=== PATIENT | male | born 1950 | race Caucasian/White ===

== ENCOUNTER → 2019-10-23 10:06 | Outpatient (BNVA) | payer MEDICARE, SELFPAY | PROVIDERS: Visit Provider Nurse Practitioner Family | DX: I10 Essential (primary) hypertension (principal); R60.0 Localized edema; Z12.5 Encounter for screening for malignant neoplasm of prostate; E03.9 Hypothyroidism, unspecified; E78.2 Mixed hyperlipidemia; F32.9 Major depressive disorder, single episode, unspecified; Z79.899 Other long term (current) drug therapy; M10.9 Gout, unspecified; F41.9 Anxiety disorder, unspecified | CPT/HCPCS: 80053; 80061; 81001; 83036; 84443; 84550; 85025; G0103 ==

== ENCOUNTER → 2020-05-25 11:09 | Outpatient (BNVA) | payer MEDICARE, MEDICAID, SELFPAY | PROVIDERS: Visit Provider Nurse Practitioner Family | DX: E78.2 Mixed hyperlipidemia (principal); I10 Essential (primary) hypertension; Z79.899 Other long term (current) drug therapy; E03.9 Hypothyroidism, unspecified; E55.9 Vitamin D deficiency, unspecified; M10.9 Gout, unspecified; M81.0 Age-related osteoporosis without current pathological fracture; J44.9 Chronic obstructive pulmonary disease, unspecified; F41.9 Anxiety disorder, unspecified; F32.9 Major depressive disorder, single episode, unspecified; R60.0 Localized edema | CPT/HCPCS: 80053; 80061; 81003; 82306; 83036; 84443; 84550; 85025 ==

== ENCOUNTER → 2021-02-03 10:51 | Outpatient (BNVA) | payer MEDICARE, MEDICAID, SELFPAY | PROVIDERS: PCP Nurse Practitioner Family; Visit Provider Nurse Practitioner Family | DX: Z12.5 Encounter for screening for malignant neoplasm of prostate (principal); Z79.899 Other long term (current) drug therapy; E55.9 Vitamin D deficiency, unspecified; I10 Essential (primary) hypertension; E03.9 Hypothyroidism, unspecified; E78.2 Mixed hyperlipidemia; R10.9 Unspecified abdominal pain | CPT/HCPCS: 74018; 80053; 80061; 81003; 82150; 82306; 83036; 83690; 84443; 84550; 85025; G0103 ==

== ENCOUNTER → 2021-11-02 08:47 | Outpatient (BNVA) | payer MEDICARE, MEDICAID, SELFPAY | PROVIDERS: PCP Nurse Practitioner Family; Visit Provider Nurse Practitioner | DX: Z12.5 Encounter for screening for malignant neoplasm of prostate (principal); I10 Essential (primary) hypertension; E03.9 Hypothyroidism, unspecified | CPT/HCPCS: 80053; 80061; 84443; 85025; G0103 ==

== ENCOUNTER → 2021-12-05 11:57 | Outpatient (BNVA) | payer MEDICARE, MEDICAID, SELFPAY | PROVIDERS: PCP Nurse Practitioner; Visit Provider Nurse Practitioner | DX: E87.5 Hyperkalemia (principal) | CPT/HCPCS: 80053 ==

== ENCOUNTER → 2023-04-08 09:54 | Outpatient (BNVA) | payer MEDICARE, MEDICAID, SELFPAY | PROVIDERS: PCP Nurse Practitioner; Visit Provider Nurse Practitioner Family | DX: F41.9 Anxiety disorder, unspecified (principal); F32.9 Major depressive disorder, single episode, unspecified; I10 Essential (primary) hypertension; E78.2 Mixed hyperlipidemia; E03.9 Hypothyroidism, unspecified; E55.9 Vitamin D deficiency, unspecified; M81.0 Age-related osteoporosis without current pathological fracture; Z12.5 Encounter for screening for malignant neoplasm of prostate; M10.9 Gout, unspecified; Z79.899 Other long term (current) drug therapy | CPT/HCPCS: 80053; 80061; 80164; 81003; 82306; 83036; 84443; 84550; 85025 ==

== ENCOUNTER 2023-05-28 12:57 | Emergency (ER) | payer MEDICARE, MEDICAID, SELFPAY ==
--- NOTE | 2023-05-28 13:02 | XR_ITS ---
WS: [id number] Exam: XR chest 1V portable [id number] Date/Time of Exam: 05/28/2023 1:04 PM Reason For Exam: syncope No priors. The lungs are clear and fully inflated. Normal cardiomediastinal silhouette. No pleural effusions. At least 2 old RIGHT rib fractures noted. Remaining bony structures are unremarkable. IMPRESSION: 1. No acute cardiopulmonary finding.
--- NOTE | 2023-05-28 13:03 | ECG_ITS ---
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 Measurements Intervals [place] Rate: 73 P: 65 OR: 203 QRS: 44 QRSD: 101 T: 54 QT: 386 QTc: 426 Interpretive Statements SINUS RHYTHM No previous ECG available for comparison Electronically Signed On 05-28-2023 16:02:23 WIRE [employer]ATING OPERATOR [employer] by El Sosa M.D. [id number]
[2023-05-28 13:06] VITALS: BMI 33.2
[2023-05-28 13:08] VITALS: BP 144/82; PULSE 72; RESP 16; TEMP 36.9; O2SAT 97
--- NOTE | 2023-05-28 13:23 | ED_ITS ---
HPI - Syncope 2 General: Chief Complaint: Syncope Stated Complaint: syncope Time Seen by Provider: 05/28/23 12:59 Source: patient and EMS Mode of arrival: EMS Limitations: no limitations History of Present Illness: 72-year-old male who states has a histor y of [place] seizures he states he has not been taking his Depakote he was riding in a car states he had felt tired he got out and either had a seizure or syncopal event. EMS was called he woke up with the ambulance and states he feels at his baseline. He has no complaints to me states that he fell like he may have had a seizure he denies any chest pain denies any headache he did not hit his head. Associated symptoms: Deny abdominal pain, chest pain, fever(s), headache(s) or nausea Review of Systems 2 Const: Denies: fever(s) or chills Eyes: Denies: blurry vision or eye discomfort ENMT: Denies: throat pain or dental pain Card: Reports: syncope; Denies: chest pain Resp: Denies: dyspnea GI: Denies: abdominal pain, nausea, vomiting or diarrhea : Denies: dysuria Musc: Denies: neck pain or back pain Skin/Breast: Denies: rash Neuro: Denies: headache(s) PFSH ED 2 PFSH: Medical History On valproic acid therapy Abdominal pain Left sided abdominal pain Gout Prostate cancer screening Medication management Vitamin D deficiency Osteoporosis Essential hypertension Hypothyroid Edema, lower extremity Anxiety and depression Mixed hyperlipidemia Chronic obstructive pulmonary disease Gout attack Surgical History H/O colonoscopy with polypectomy Social History Smoking and tobacco/nicotine status: current every day tobacco/nicotine user Second hand smoke exposure: No Alcohol intake: never Physical Exam 2 Const: COMMON NORMALS: no acute distress, patient oriented x3 and healthy appearing HENMT: COMMON NORMALS: normocephalic and atraumatic HEAD & SCALP: n ormocephalic and atraumatic Neck/C-Spine: COMMON NORMALS: full ROM and supple Chest: COMMONS NORMALS: normal inspection of the chest Resp: COMMON NORMALS: normal respiratory effort Cardio: COMMON NORMALS: regular rate, regular rhythm and No murmurs present (Cardio) RATE: regular rate RHYTHM: regular rhythm GI: COMMON NORMALS: Normal to inspection, nondistended, normoactive bowel sounds present, Soft to palpation, non-tender and no masses PALPATION: Yes Soft to palpation Extremity: COMMON NORMALS: normal to inspection and full ROM Neuro: COMMON NORMALS: patient oriented x3, moves all extremities and no focal motor deficits CRANIAL NERVES: Yes CN normal except as noted SPEECH: s peech normal GAIT: Yes Normal gait present MOTOR EXAM: 5/5 motor strength present throughout Psych: COMMON NORMALS: mental status grossly normal, Normal thought process present and cooperative THOUGHT PROCESS: Normal thought process present Skin: COMMON NORMALS: no rashes or lesions noted and no wounds GENERAL SKIN EXAM: no rashes or lesions noted Course 2 Vital Signs: Vital signs: Vital Signs Temperature 98.4 F 05/28/23 13:08 Pulse Rate 72 05/28/23 13:08 Respiratory Rate 16 05/28/23 13:08 Blood Pressure 144/82 05/28/23 13:08 Pulse Oximetry 97 05/28/23 13:08 Oxygen Delivery Me thod Room Air 05/28/23 13:08 MDM - Syncope Medical Decision Making Patient presents here with a syncopal event versus possible seizure he is well- appearing here he is at his baseline he is wanting to go home his blood work here is all normal I did offer him a head CT he states he felt fine and does not want head CT at this time. He is stable for discharge follow-up with PCP return if worsening. Medical Records I reviewed the patient's medical records. Lab Data I reviewed the patient's lab results. 05/28/23 13:35 05/28/23 13:35 Laboratory Results WBC 9.31 10^3/uL (3.29-11.43) 05/28/23 13:35 RBC 4.85 10^6/uL (3.85-5.65) 05/28/23 13:35 Hgb 15.30 g/dL (11.27-16.99) 05/28/23 13:35 Hct 47.5 % (37-53) 05/28/23 13:35 MCV 97.9 fl (82-101) 05/28/23 13:35 MCH 31.5 pg (27-33) 05/28/23 13:35 MCHC 32.2 g/dL (30-55) 05/28/23 13:35 RDW 12.7 % (12.1-15.1) 05/28/23 13:35 Plt Count 264 10^3/cmm (157-399) 05/28/23 13:35 MPV 9.3 fL (7.4-10.4) 05/28/23 13:35 Neut % (Auto) 76.7 % 05/28/23 13:35 Lymph % (Auto) 13.5 % 05/28/23 13:35 [place] % (Auto) 7.2 % 05/28/23 13:35 Eos % (Auto) 1.7 % 05/28/23 13:35 Baso % (Auto) 0.5 % 05/28/23 13:35 Neut # (Auto) 7.13 10^3/uL (1.8-7.7) 05/28/23 13:35 Lymph # (Auto) 1.3 10^3/uL (0.8-4.8) 05/28/23 13:35 [place] # (Auto) 0.7 10^3/uL (0.2-0.9) 05/28/23 13:35 Eos # (Auto) 0.2 10^3/uL (0.0-0.8) 05/28/23 13:35 Baso # (Auto) 0.1 10^3/uL (0.0-0.1) 05/28/23 13:35 Nucleated RBC % (auto) 0 % 05/28/23 13:35 Nucleated RBCs # 0.0 /100WBC 05/28/23 13:35 PT 12.70 SECONDS (12.1-14.9) 05/28/23 13:35 INR 0.93 (0.8-1.2) 05/28/23 13:35 Sodium 139 mmol/L (136-145) 05/28/23 13:35 Potassium 4.0 mmol/L (3.5-5.1) 05/28/23 13:35 Chloride 105 mmol/L (98-107) 05/28/23 13:35 Carbon Dioxide 21 mmol/L (22-29) L 05/28/23 13:35 Anion Gap 17.0 (5-19) 05/28/23 13:35 BUN 13 mg/dL (8-23) 05/28/23 13:35 Creatinine 1.1 mg/dL (0.7-1.2) 05/28/23 13:35 GFR Calculation Not Reportable 05/28/23 13:35 Glucose 144 mg/dL (65-115) H 05/28/23 13:35 Calculated Osmolality 291 mOsm/kg (285-295) 05/28/23 13:35 Calcium 9.2 mg/dL (8.5-10.5) 05/28/23 13:35 Total Bilirubin 0.5 mg/dL (0.15-1.2) 05/28/23 13:35 AST 17 U/L (0-40) 05/28/23 13:35 ALT 14 U/L (0-41) 05/28/23 13:35 Alkaline Phosphatase 66 U/L (40-130) 05/28/23 13:35 Total Protein 6.7 g/dL (6.6-8.7) 05/28/23 13:35 Albumin 4.1 g/dL (3.5-5.2) 05/28/23 13:35 Globulin 2.6 g/dL (1.3-4.6) 05/28/23 13:35 All radiology interpretation(s) finalized by discharge EKG Data EKG 1: I personally reviewed and interpreted this EKG as follows: EKG interpretation date: 05/28/23 EKG interpretation time: 13:09 Interpretation: nsr hr [address] or t wave abnormalities qrs 101 qtc 411 Discharge Plan Discharge Patient Disposition: Home Clinical Impression: Syncope Condition: Stable Prescriptions: No Action allopurinol 100 mg tablet 100 mg PO DAILY 90 Days Qty: 90 1RF cholecalciferol (vitamin D3) 1,250 mcg (50,000 unit) capsule 50,000 unit PO .weekly 90 Days Qty: 12 1RF albuterol sulfate 90 mcg/actuation HFA aerosol inhaler See Rx Instructions .ROUTE .COMPLEX Qty: 8.5 5RF Dose Instruction: INHALE 2 PUFFS BY MOUTH EVERY 6 HOURS NEEDED FOR SHORTNESS OF BREATH OR WHEEZING Rx Instructions: INHALE 2 PUFFS BY MOUTH EVERY 4-6 HOURS NEEDED FOR SHORTNESS OF BREATH OR WHEEZING atorvastatin 20 mg tablet See Rx Instructions .ROUTE .COMPLEX 90 Days Qty: 90 2RF Dose Instruction: TAKE 1 TABLET BY MOUTH DAILY Rx Instructions: TAKE 1 TABLET BY MOUTH DAILY divalproex 500 mg tablet,delayed release (DR/EC) See Rx Instructions .ROUTE .COMPLEX 90 Days Qty: 180 2RF Dose Instruction: TAKE 1 TABLET BY MOUTH TWICE DAILY Rx Instructions: TAKE 1 TABLET BY MOUTH TWICE DAILY levothyroxine 150 mcg tablet See Rx Instructions .ROUTE .COMPLEX 90 Days Qty: 90 2RF Dose Instruction: TAKE 1 TABLET BY MOUTH DAILY Rx Instructions: TAKE 1 TABLET BY MOUTH DAILY lisinopril 10 mg tablet See Rx Instructions .ROUTE .COMPLEX 90 Days Qty: 90 2RF Dose Instruction: TAKE 1 TABLET(10 MG) BY MOUTH EVERY DAY Rx Instructions: TAKE 1 TABLET(10 MG) BY MOUTH EVERY DAY alendronate 70 mg tablet See Rx Instructions .ROUTE .COMPLEX Qty: 12 0RF Dose Instruction: TAKE 1 TABLET BY MOUTH WEEKLY Rx Instructions: TAKE 1 TABLET BY MOUTH WEEKLY furosemide 40 mg tablet See Rx Instructions .ROUTE .COMPLEX Qty: 90 0RF Dose Instruction: TAKE 1 TABLET BY MOUTH DAILY NEEDED FOR SWELLING Rx Instructions: TAKE 1 TABLET BY MOUTH DAILY NEEDED FOR SWELLING fluoxetine 20 mg capsule See Rx Instructions .ROUTE .COMPLEX Qty: 90 0RF Dose Instruction: TAKE 1 CAPSULE(20 MG) BY MOUTH EVERY DAY Rx Instructions: TAKE 1 CAPSULE(20 MG) BY MOUTH EVERY DAY fluticasone furoate-vilanterol [Breo Ellipta] 200-25 mcg/dose blister with device 1 inh inhalation DAILY Qty: 60 1RF Discharge Orders: Discharge ED (Routine); Ordered 05/28/23 Ordered By: Dimitri Khanna Referrals: GWEN Jose, [facility] [Primary Care Provider] - 1-3 days Discharge Diet: Advance as tolerated Discharge Activity: Resume usual activity Patient Instructions: Syncope (ED) Coding Level of Care Code ED Parachute Officer for Miko Johns
[2023-05-28] MEDS: sodium chloride 0.9% 1,000 ML 999 ML IV (13:42)
[2023-05-28 13:50] LABS: Basophils # 0.1 10^3/uL (0.0-0.1); Basophils % 0.5 %; Eosinophils # 0.2 10^3/uL (0.0-0.8); Eosinophils % 1.7 %; Hematocrit 47.5 % (37-53); Lymphocytes # 1.3 10^3/uL (0.8-4.8); Lymphocytes % 13.5 %; Mean Corpuscular HGB Conc 32.2 g/dL (30-55); Mean Corpuscular Hemoglobin 31.5 pg (27-33); Mean Corpuscular Volume 97.9 fl (82-101); Mean Platelet Volume 9.3 fL (7.4-10.4); Monocytes # 0.7 10^3/uL (0.2-0.9); Monocytes % 7.2 %; Neutrophils # 7.13 10^3/uL (1.8-7.7); Neutrophils % 76.7 %; Nucleated Red Blood Cells % 0 %; Platelet Count 264 10^3/cmm (157-399); Red Blood Count 4.85 10^6/uL (3.85-5.65); Red Cell Distribution Width 12.7 % (12.1-15.1); White Blood Count 9.31 10^3/uL (3.29-11.43)
[2023-05-28 14:01] LABS: INR 0.93 (0.8-1.2)
[2023-05-28 14:07] LABS: Alanine Aminotransferase 14 U/L (0-41); Albumin Level 4.1 g/dL (3.5-5.2); Alkaline Phosphatase 66 U/L (40-130); Aspartate Amino Transferase 17 U/L (0-40); Blood Urea Nitrogen 13 mg/dL (8-23); Calcium 9.2 mg/dL (8.5-10.5); Carbon Dioxide 21 mmol/L (22-29); Chloride 105 mmol/L (98-107); Creatinine Clr Calc Pharmacy 72.5225; Globulin 2.6 g/dL (1.3-4.6); Glucose 144 mg/dL (65-115); Osmolality Calculated 291 mOsm/kg (285-295); Sodium 139 mmol/L (136-145); Total Bilirubin 0.5 mg/dL (0.15-1.2); Total Protein 6.7 g/dL (6.6-8.7)
[2023-05-28 14:30] VITALS: BP 139/77; PULSE 72; O2SAT 98
[2023-05-28 15:31] LABS: Valproic Acid Level 2.8 ug/mL (50-100)
== END 2023-05-28 15:13 | disposition home or self-care (01) ==
PROVIDERS: Emergency Provider Emergency Medicine; PCP Nurse Practitioner Family
DX: R55 Syncope and collapse (principal); Z72.0 Tobacco use; I10 Essential (primary) hypertension; E78.2 Mixed hyperlipidemia; J44.9 Chronic obstructive pulmonary disease, unspecified
CPT/HCPCS: 36415; 71045; 80053; 80164; 85025; 85610; 93005; 96360; 99285; J7030

== ENCOUNTER → 2024-03-12 08:38 | Outpatient (BNVA) | payer MEDICARE, MEDICAID, SELFPAY | PROVIDERS: PCP Nurse Practitioner Family; Visit Provider Nurse Practitioner Family | DX: Z12.5 Encounter for screening for malignant neoplasm of prostate (principal); I10 Essential (primary) hypertension; E78.2 Mixed hyperlipidemia; E55.9 Vitamin D deficiency, unspecified; F41.9 Anxiety disorder, unspecified; F32.9 Major depressive disorder, single episode, unspecified; E03.9 Hypothyroidism, unspecified; M81.0 Age-related osteoporosis without current pathological fracture; M10.9 Gout, unspecified; Z79.899 Other long term (current) drug therapy; J44.1 Chronic obstructive pulmonary disease with (acute) exacerbation; J22 Unspecified acute lower respiratory infection | CPT/HCPCS: 80053; 80061; 80164; 81003; 82306; 83036; 84443; 84550; 85025; G0103 ==

== ENCOUNTER → 2024-08-20 08:27 | Outpatient (BNVA) | payer MEDICARE, MEDICAID, SELFPAY | PROVIDERS: PCP Nurse Practitioner Family; Visit Provider Nurse Practitioner Family | DX: I10 Essential (primary) hypertension (principal); E78.2 Mixed hyperlipidemia; E03.9 Hypothyroidism, unspecified; E55.9 Vitamin D deficiency, unspecified; R10.84 Generalized abdominal pain; Z12.5 Encounter for screening for malignant neoplasm of prostate; M10.9 Gout, unspecified; Z79.899 Other long term (current) drug therapy | CPT/HCPCS: 80053; 80061; 80164; 81003; 82306; 83036; 84443; 84550; 85025; G0103 ==

== ENCOUNTER → 2024-11-26 08:01 | Outpatient (BNVA) | payer MEDICARE, MEDICAID, SELFPAY | PROVIDERS: PCP Nurse Practitioner Family; Visit Provider Nurse Practitioner Family | DX: R97.20 Elevated prostate specific antigen [PSA] (principal); E11.9 Type 2 diabetes mellitus without complications; E78.2 Mixed hyperlipidemia; Z79.899 Other long term (current) drug therapy | CPT/HCPCS: 80053; 80061; 82607; 82746; 83036; 84153 ==

== ENCOUNTER → 2025-03-08 08:27 | Outpatient (BNVA) | payer MEDICARE, MEDICAID, SELFPAY | PROVIDERS: PCP Nurse Practitioner Family; Visit Provider Nurse Practitioner Family | DX: R97.20 Elevated prostate specific antigen [PSA] (principal); R73.09 Other abnormal glucose | CPT/HCPCS: 81003; 83036; 84153 ==